=== PATIENT | male | born 1935 | race Hispanic/Latino ===

== ENCOUNTER 2018-02-03 10:53 | Inpatient (IN) | payer OTHER, MEDICARE ==
[2018-02-03 10:55] VITALS: BMI 25.1
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
[2018-02-03] MEDS ORDERED: Calcium Chloride 1000 mg/10 ml Syringe IV ONE (11:28)
[2018-02-03 11:49] LABS: INR 0.97; PARTIAL THROMBOPLASTIN TIME 36.6 Seconds (25.1-36.5); PROTHROMBIN TIME 11.2 SECONDS (9.4-12.5)
[2018-02-03 11:51] LABS: BASO # 0.03 K/mm3 (0.0-2.0); BASO % 0.2 % (0.0-3.0); EOS # 0.2 (0.0-0.7); EOS % 1.2 % (1.5-5.0); GRAN # 6.84 (1.4-6.5); GRAN % 47.5 % (50.0-68.0); HEMOGLOBIN 9.9 g/dL (14.0-18.0); LYMPH # 6.5 (1.2-3.4); LYMPH % 44.9 % (22.0-35.0); MEAN CELL VOLUME 105.8 fl (80.0-105.0); MEAN CORPUSCULAR HGB CONC 30.3 g/dl (31.0-37.0); MEAN PLATELET VOLUME 11.6 fl (7.0-11.0); MONO # 0.9 (0.1-0.6); MONO % 6.2 % (1.0-6.0); RBC 3.09 10^6/uL (3.5-6.1); RED CELL DISTRIBUTION WIDTH 15.5 % (11.5-14.5); WHITE BLOOD COUNT 14.4 10^3/uL (4.5-11.0)
[2018-02-03 12:02] LABS: ALBUMIN 3.1 g/dL (3.0-4.8); CALCIUM 10.6 mg/dL (8.4-10.5); TROPONIN I 0.03 ng/mL
[2018-02-03 12:26] LABS: PH,URINE 6.5 (4.7-8.0); URINE BILIRUBIN NEGATIVE (NEGATIVE); URINE BLOOD MODERATE (NEGATIVE); URINE GLUCOSE (UA) NEGATIVE (NEGATIVE); URINE LEUKOCYTE ESTERASE LARGE Leu/uL (NEGATIVE); URINE PROTEIN 30 mg/dL (<30 mg/dL); URINE UROBILINOGEN 0.2 E.U./dL (<1 E.U./dL)
[2018-02-03 12:40] LABS: URINE APPEARANCE TURBID (CLEAR); URINE COLOR YELLOW (YELLOW)
[2018-02-03 12:43] LABS: URINE BACTERIA MANY /hpf; URINE WBC TNTC /hpf (0-6)
[2018-02-03 12:59] LABS: BARBITURATES, UR NEGATIVE (NEGATIVE); BENZODIAZEPINES, UR NEGATIVE (NEGATIVE); OPIATES, UR NEGATIVE (NEGATIVE); PHENCYCLIDINE, UR NEGATIVE (NEGATIVE)
--- NOTE | 2018-02-03 13:22 | RAD ---
Date of service: 02/03/2018 HISTORY: post intubation/tube placements COMPARISON: No prior. FINDINGS: LUNGS: No active pulmonary disease. PLEURA: No significant pleural effusion identified, no pneumothorax apparent. CARDIOVASCULAR: No atherosclerotic calcification present No radiographic findings to suggest acute or significant cardiovascular disease. OSSEOUS STRUCTURES: No significant abnormalities. VISUALIZED UPPER ABDOMEN: Normal. OTHER FINDINGS: Satisfactory position of endotracheal tube. Nasogastric tube tip above the diaphragm. The finding is marked on the study for review. IMPRESSION: Satisfactory position of endotracheal tube. Poorly positioned nasogastric tube, the tip in the thoracic cavity at least 5 cm from the gastroesophageal junction.
[2018-02-03] MEDS ORDERED: levETIRAcetam 1000mg/100ml NS 100 ML IV ONE (13:30)
[2018-02-03] MEDS ORDERED: Propofol 10 mg/ml 0 MG/0 ML VIAL ONE (13:46)
--- NOTE | 2018-02-03 14:09 | RAD ---
Date of service: 02/03/2018 HISTORY: tube adjustment COMPARISON: February 03, 2018 Time of the most recent examination: 11:11. FINDINGS: LUNGS: No active pulmonary disease. PLEURA: Small right pneumothorax a new finding compared to prior studies. CARDIOVASCULAR: No radiographic findings to suggest acute or significant cardiovascular disease. Atherosclerotic calcifications identified primarily aortic arch. OSSEOUS STRUCTURES: No significant abnormalities. VISUALIZED UPPER ABDOMEN: Normal. OTHER FINDINGS: Satisfactory position of nasogastric tube. Stable position of endotracheal tube IMPRESSION: . small right apical pneumothorax on the right a new finding compared to the prior chest radiograph from 11:11 February 03, 2018 Please note attempts were made to reach the ordering physician at the time of this interpretation. Abdomen report will be issued upon verbal communication of these results.
[2018-02-03 14:54] LABS: ARTERIAL BLOOD GAS PCO2 43 mm/Hg (35-45); ARTERIAL BLOOD GAS PH 7.19 (7.35-7.45)
[2018-02-03 14:57] LABS: ARTERIAL BLOOD GAS HCO3 16.4 mmol/L (21-28)
[2018-02-03 14:58] LABS: ARTERIAL BLOOD GAS HEMOGLOBIN 8.1 g/dL (11.7-17.4); ARTERIAL BLOOD GAS O2 SAT 98.5 % (95-98); ARTERIAL BLOOD GAS TCO2 17.7 mmol.L (22-28)
[2018-02-03] MEDS: Dextrose 5%/0.45% NS 1,000 ML IV SCH (15:46)
[2018-02-03] MEDS ORDERED: Sodium Bicarbonate (8.4%) 50 Meq Syringe IVP ONE ×2 (15:50→16:00)
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
[2018-02-03 17:00] LABS: ARTERIAL BLOOD GAS HCO3 19.1 mmol/L (21-28); ARTERIAL BLOOD GAS HEMOGLOBIN 7.5 g/dL (11.7-17.4); ARTERIAL BLOOD GAS O2 CAPACITY 10.5 mL/dl (16-24); ARTERIAL BLOOD GAS O2 CONTENT 10.4 ML/dl (15-23); ARTERIAL BLOOD GAS O2 SAT 98.8 % (95-98); ARTERIAL BLOOD GAS PCO2 37 mm/Hg (35-45); ARTERIAL BLOOD GAS PH 7.32 (7.35-7.45); ARTERIAL BLOOD GAS TCO2 20.2 mmol.L (22-28)
[2018-02-03] MEDS ORDERED: Pneumococcal 23-Valent Vaccine IM ONE (17:16)
[2018-02-03] MEDS ORDERED: Influenza Vaccine 60 mcg/0.5 mL SYR (4YR UP) IM ONE (17:16)
[2018-02-03 17:54] LABS: ALBUMIN 2.8 g/dL (3.0-4.8); CALCIUM 8.7 mg/dL (8.4-10.5)
--- NOTE | 2018-02-03 18:03 | RAD ---
Date of service: 02/03/2018 HISTORY: ptx COMPARISON: No prior. FINDINGS: LUNGS: Well aerated right lung. New consolidative changes left lower lobe. PLEURA: No visible pneumothorax identified on the present study. CARDIOVASCULAR: No atherosclerotic calcification present Normal. OSSEOUS STRUCTURES: No significant abnormalities. VISUALIZED UPPER ABDOMEN: Normal. OTHER FINDINGS: Satisfactory position of endotracheal tube. Nasogastric tube tip now resides at the level of the mid esophagus. The finding is marked on the study for review. IMPRESSION: No visible pneumothorax. New consolidative changes/left lower lobe infiltrate. Satisfactory position of endotracheal tube. Improperly positioned nasogastric tube. The tip is in the midthoracic esophagus at the level of the von.
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
[2018-02-04] MEDS: Insulin Reg-MEDIUM-Coverage SC SCH ×4 (00:35→17:47)
[2018-02-04 06:50] LABS: BASO # 0.01 K/mm3 (0.0-2.0); BASO % 0.1 % (0.0-3.0); GRAN # 15.12 (1.4-6.5); HEMOGLOBIN 9.7 g/dL (14.0-18.0); LYMPH # 0.7 (1.2-3.4); MEAN CELL VOLUME 101.7 fl (80.0-105.0); MEAN CORPUSCULAR HGB CONC 31.5 g/dl (31.0-37.0); MEAN PLATELET VOLUME 10.9 fl (7.0-11.0); MONO # 1.6 (0.1-0.6); MONO % 8.9 % (1.0-6.0); PLATELET COUNT 251 10^3/uL (120.0-450.0); RBC 3.03 10^6/uL (3.5-6.1); RED CELL DISTRIBUTION WIDTH 15.3 % (11.5-14.5); WHITE BLOOD COUNT 17.4 10^3/uL (4.5-11.0)
[2018-02-04 06:51] LABS: CALCIUM 8.6 mg/dL (8.4-10.5)
[2018-02-04 07:02] LABS: ARTERIAL BLOOD GAS HCO3 14.5 mmol/L (21-28); ARTERIAL BLOOD GAS HEMOGLOBIN 8.2 g/dL (11.7-17.4); ARTERIAL BLOOD GAS O2 CONTENT 10.3 ML/dl (15-23); ARTERIAL BLOOD GAS PCO2 25 mm/Hg (35-45); ARTERIAL BLOOD GAS PH 7.37 (7.35-7.45); ARTERIAL BLOOD GAS TCO2 15.3 mmol.L (22-28)
[2018-02-04 07:24] LABS: BAND 1 % (0-2); EOSINOPHIL 1 % (0.0-3.0); LYMPHOCYTE 3 % (22.0-35.0); MONOCYTE 6 % (1.0-6.0); NEUTROPHIL 89 % (50.0-70.0)
[2018-02-04 07:25] LABS: HYPOCHROMIA 2+; PLATELET ESTIMATE NORMAL (NORMAL); ROULEAU 2+; TOXIC GRANULATION 3+
--- NOTE | 2018-02-04 07:33 | CP.PCM.PCO ---
Physician Communication Note - Physician Communication Note Physician Communication Note: no evidence of PTX on CXR this am, no need for Chest tube, will sign off
[2018-02-04] MEDS: Potassium Chloride 20 mEq 100 ML IV SCH ×2 (08:39→13:52)
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
--- NOTE | 2018-02-04 09:05 | CARD ---
APPROVED REPORT Date of service: 02/03/2018 EKG Measurement Heart [id number] <Conclusion> Sinus with frequent PVCs, 6 beat VT LVH STTW changes Prolonged QTc
--- NOTE | 2018-02-04 09:28 | CARD ---
APPROVED REPORT Date of service: 02/03/2018 EKG Measurement Heart [id number] <Conclusion> Sinus rhythm with 2nd degree AV block (Mobitz I) Left ventricular hypertrophy with repolarization abnormality STTW changes c/w ischemia
--- NOTE | 2018-02-04 09:29 | CARD ---
APPROVED REPORT Date of service: 02/03/2018 EKG Measurement Heart [id number] <Conclusion> RSR with Mobitz 1 2nd degree AVB LVH STTW changes c/w ischemia
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
--- NOTE | 2018-02-04 10:45 | RAD ---
Date of service: 02/04/2018 HISTORY: Pneumothorax. COMPARISON: February 03, 2018. FINDINGS: LUNGS: No visible pneumothorax. Finding confirmed on recent CT of the thorax. Improved aeration of the lungs compared to prior chest radiographs. PLEURA: No significant pleural effusion identified, no pneumothorax apparent. CARDIOVASCULAR: No significant interval change compared to the prior examination(s). OSSEOUS STRUCTURES: No significant abnormalities. VISUALIZED UPPER ABDOMEN: Normal. OTHER FINDINGS: Satisfactory position of endotracheal tube. Stable position of nasogastric tube at the level of the von. As described on prior CT scans the proximal nasogastric tube is coiled in the oral and hypopharyngeal regions. IMPRESSION: Stable position of support apparatus including improperly placed nasogastric tube. No visible pneumothorax.
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
[2018-02-04 13:30] LABS: TROPONIN I 0.75 ng/mL
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
--- NOTE | 2018-02-04 14:56 | PN ---
DATE: 02/04/2018 SUBJECTIVE: The patient is sedated on ventilator and with FiO2 of 40%. He has a potassium of 3.6 this morning which will be replaced. Note that the patient's CT of the head was negative and no pneumothorax on the CT of the chest. The patient continued to be unresponsive. PHYSICAL EXAMINATION: VITAL SIGNS: Note that his temperature is 98.6, his pulse is 77, respirations of 23 and BP is 144/85. SKIN: Warm and dry. HEENT: Head atraumatic, normocephalic. Eyes reactive to light. Ear, nose and throat seem to be within normal limits. NECK: His neck is supple. No JVD. No thyroid enlargement or lymph nodes. HEART: Has regular rate and rhythm. Normal S1, S2. LUNGS: Reveal mild rhonchi at the bases. ABDOMEN: Soft. Decreased bowel sounds. GENITALIA: Deferred. RECTAL: Deferred. MUSCULOSKELETAL: No joint deformities. EXTREMITIES: Reveal 1+ lower extremity edema. NEUROLOGIC: Neurologically, he is unresponsive on the ventilator. LABORATORY DATA: As far as his laboratories are concerned, white count is 17.4, hemoglobin is 9.7, hematocrit 30.8 with platelets of 251,000. His arterial blood gas reveals a pH of 7.37, pCO2 of 25, pO2 of 143. The patient's sodium is 143, potassium 3.4, chloride 117, CO2 of 22 with a BUN of 32, creatinine of 1.9 and a glucose of 301. The patient's troponin is 0.86 this morning. As far as chest x-ray, reading is pending. CT of the abdomen and pelvis revealed that there is a lower lobe infiltrate and symmetrical small pleural effusions. Noted that there was an improperly positioned NG tube. IMPRESSION: Patient had cardiac arrest and cardiopulmonary resuscitation with pulseless electrical activity during admission. He continued to be unresponsive on the ventilator and with respiratory failure. He has anemia as well as acute renal failure, hypokalemia anemia and metabolic acidosis. The patient has a ventral hernia and multiple contusions and diagnosed with diabetes and prostate disease. PLAN: As far as our plan, we will continue with the ventilator support. Continue to follow closely with cardiology and neurology. We will continue with Protonix and bicarb drip has been stopped. We will follow the patient's arterial blood gas and chest x-ray as well. Ephraim Momin MD
[2018-02-04 15:19] LABS: CALCIUM 8.7 mg/dL (8.4-10.5)
[2018-02-04 15:36] LABS: CK MB% 1.3 % (2.5-3.0); CK-MB 13.2 ng/mL (0.0-3.6)
[2018-02-04] MEDS: Vancomycin 750mg 750 MG/250 ML BAG IVPB SCH (17:38)
[2018-02-04] MEDS: Dextrose 5%/0.45% NS 1,000 ML IV SCH (18:53)
[2018-02-04] MEDS: Cefepime 1gm in NS 100ml 1 GM/100 ML BAG IVPB SCH (21:36)
[2018-02-05] MEDS: Insulin Reg-MEDIUM-Coverage SC SCH ×3 (03:58→18:54)
[2018-02-05] MEDS: Vancomycin 750mg 750 MG/250 ML BAG IVPB SCH (05:16)
[2018-02-05 06:59] LABS: ALB/GLOB RATIO 0.9 (1.1-1.8); ALBUMIN 2.8 g/dL (3.0-4.8); CALCIUM 8.6 mg/dL (8.4-10.5)
[2018-02-05] MEDS: Dextrose 5%/0.45% NS 1,000 ML IV SCH (07:45)
--- NOTE | 2018-02-05 08:16 | CP.PCM.PN ---
Subjective - Date & Time of Evaluation Date of Evaluation: 02/05/18 Time of Evaluation: 07:00 - Subjective Subjective: Stable, intubated, on vent in CCU. I spoke with his bedside nurse. V/S noted. RSR. Febrile PE: ngs: rhonchi Cor.: S1S2 Abd.: soft Ext.: mild edema Neuro.: unresponsive I/O= 2600/2150 recorded Labs noted: K+= 3.8, Cr.= 2.1, BS = 277, trops = 0.75 and 0.76 Urine C+S= GNR ECG 02/04: RSR, 1st degree AVB, LVH, STTW changes Objective - Vital Signs/Intake and Output Vital Signs (last 24 hours): Temp Pulse Resp BP Pulse Ox 99.3 F 99 H 30 H 135/58 L 100 02/05/18 06:00 02/05/18 06:00 02/05/18 07:43 02/05/18 06:00 02/05/18 07:43 Intake and Output: 02/05/18 02/05/18 06:59 18:59 Intake Total 2600 Output Total 2150 Balance 450 - Medications Medications: Current Medications Aspirin (Aspirin Supp) 300 mg RC DAILY [facility] Last Admin: 02/04/18 10:03 Dose: 300 mg Dextrose/Sodium Chloride (Dextrose 5%/0.45% Ns 1000 Ml) 1,000 mls @ 75 mls/hr IV .[id number] RAJ Last Admin: 02/04/18 18:53 Dose: 75 mls/hr Vancomycin HCl (Vancomycin 750 Mg In Ns) 750 mg in 250 mls @ 167 mls/hr IVPB Q12H RAJ; Protocol Last Admin: 02/05/18 05:16 Dose: 167 mls/hr Cefepime HCl (Maxipime 1gm) 1 gm in 100 mls @ 100 mls/hr IVPB Q12 RAJ; Protocol Last Admin: 02/04/18 21:36 Dose: 100 mls/hr Insulin Human Regular (Humulin R Med) 0 units SC ACHS RAJ; Protocol Last Admin: 02/05/18 03:58 Dose: Not Given Pantoprazole Sodium (Protonix Inj) 40 mg IVP DAILY [facility] Last Admin: 02/04/18 10:01 Dose: 40 mg - Labs Labs: 02/04/18 06:30 02/05/18 05:30 PT 11.2 SECONDS (9.4-12.5) 02/03/18 11:30 INR 0.97 02/03/18 11:30 APTT 36.6 Seconds (25.1-36.5) H 02/03/18 11:30 Assessment and Plan - Assessment and Plan (Free Text) Assessment: OOHCA with prolonged resuscitation/R/O TX,arrhythmia., etc Anoxic encephalopathy/R/O stroke Seizure Hypokalemia initially Acute renal insufficiency Hyperglycemia Anemia Leukocytosis Plan: As per Intensivists, Neuro. Check echo today. Monitor: labs, I/O, sats., neuro. status, etc. Will follow.
[2018-02-05 08:49] LABS: BASO # 0.01 K/mm3 (0.0-2.0); GRAN # 18.75 (1.4-6.5); GRAN % 89.2 % (50.0-68.0); HEMOGLOBIN 10.3 g/dL (14.0-18.0); LYMPH # 1.2 (1.2-3.4); LYMPH % 5.5 % (22.0-35.0); MEAN CELL VOLUME 105.6 fl (80.0-105.0); MEAN CORPUSCULAR HEMOGLOBIN 31.9 pg (25.0-35.0); MEAN CORPUSCULAR HGB CONC 30.2 g/dl (31.0-37.0); MEAN PLATELET VOLUME 11.5 fl (7.0-11.0); MONO # 1.1 (0.1-0.6); MONO % 5.3 % (1.0-6.0); RBC 3.23 10^6/uL (3.5-6.1); RED CELL DISTRIBUTION WIDTH 15.9 % (11.5-14.5)
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
--- NOTE | 2018-02-05 09:03 | CARD ---
APPROVED REPORT Date of service: 02/04/2018 EKG Measurement Heart [id number] ID [id number] <Conclusion> Sinus rhythm with 1st degree AV block Left ventricular hypertrophy STTW changes c/w ischemia
[2018-02-05] MEDS: Cefepime 1gm in NS 100ml 1 GM/100 ML BAG IVPB SCH (09:29)
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
--- NOTE | 2018-02-05 14:41 | PN ---
NEUROLOGY FOLLOWUP DATE: 02/05/2018 CHIEF COMPLAINT: Followup for status post cardiac arrest. SUBJECTIVE: The patient is sedated, on ventilator, withdraws to localized noxious stimuli, but otherwise, continues to be unresponsive. He is on Keppra 750 mg IV every 12 hours for seizure prophylaxis. EEG was done, results are pending. PAST MEDICAL HISTORY: History of type 2 diabetes mellitus. REVIEW OF SYSTEMS: A 12-point review of systems is negative except per the HPI FAMILY HISTORY: Noncontributory. MEDICATIONS: Reviewed by nurse's reconciliation sheet. ALLERGIES: UNABLE TO OBTAIN AT THIS TIME. REVIEW OF SYSTEMS: Unable to obtain due to the patient's mental status. SOCIAL HISTORY: Unable to obtain. LABORATORY DATA: Sodium 146, potassium 3.8, chloride 119, carbon dioxide 23, BUN of 35, creatinine 2.1, random glucose of 277. Troponin 0.76. Urine cultures growing Klebsiella pneumonia. PHYSICAL EXAMINATION: VITAL SIGNS: Temperature 99.3, pulse rate of 99, respirations 35, and blood pressure 105/58. GENERAL: The patient is sedated, unresponsive. HEART: S1 and S2. Normal rate and rhythm. No murmurs, rubs or gallops. ABDOMEN: Soft, nontender, and nondistended. Bowel sounds are present. LUNGS: Decreased breath sounds bilaterally. NEUROLOGIC: Difficult to obtain due to mental status, the is intubated and unresponsive. Speech is difficult to obtain at this time. Cranial nerves II through XII intact. Motor exam, no spontaneous movements in extremities. Sensory exam, Withdraws to localized noxious stimulus especially in the lower extremities. Toes are upgoing bilaterally. Coordination and gait, deferred for now. IMPRESSION AND PLAN: This is a 82-year-old male with history of diabetes, status post cardiac arrest, who has some questionable seizure like activity. He is on Keppra 750 mg intravenous every 12 hours. EEG has been done, results are pending. CAT scan of the head showed no acute intracranial abnormality. 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 Neurosurgery is on board, pending their evaluation. The patient also has some underlying lower lobe infiltrate, status post cardiac arrest and in addition to Klebsiella pneumonia in his urine, complicated mental status. RECOMMENDATIONS: At this time, 1. Thiamine 300 mg IV every 12 hours daily for neuronal activity. 2. Keppra 750 mg IV every 12 hours for seizure prophylaxis. 3. We will recommend MRI of the brain without contrast to assess for any central process with worsening mental status. 4. Continue to monitor his troponin and follow up with Cardiology in regard to recommendations. At this time, prognosis is guarded. Jose Luis Espinal MD
[2018-02-05] MEDS: Meropenem IV 1 gm in NS 1 GM/50 ML BAG IVPB SCH ×2 (15:23→22:53)
--- NOTE | 2018-02-05 16:52 | PCM.EEG ---
Electroencephalogram Report - Electroencephalogram Report Procedure Date: 02/05/18 Medication: ASA, Meropenem, Pantoprazole Interpretation: Technical Information: This was a 16-channel EEG, 1-channel EKG routine EEG performed using [employer] equipment. Electrodes were applied using the 10/20 international placement system. Start 11;05 End; 11;50 Total; 45 min Clinical Information: Coma, s/p cardiac arrest. EEG Details During the entire study was not discernible awake EEG architecture, the tracing showed diffuse bilateral attenuation with frequencies in the 4 to 5 Hz. with superimposed onand off muscle artifact. , there was no reactivity of the EEG. Drowsiness not seen, sleep not seen. Hyperventilation was not performed. Photic stimulation was not performed. Interictal activity; none Focal abnormality; none Impression: This is an abnormal EEG record that demonstrate the presence of severe non specific diffuse disturbance of cortical activity, this is keeping with a diffuse joe matter dysfunction, these findings are not specific and could be secondary to multiple etiologies, clinical correlation is recommended. Patient is not in status epilepticus.
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
--- NOTE | 2018-02-05 22:24 | CON ---
DATE OF CONSULTATION: 02/05/2018 The patient is in Room 129, Bed 2. I was called to see the patient because of a fever. The patient is intubated on a ventilator, unresponsive. The patient was brought to the emergency room with a diagnosis of cardiac arrest. He did have fever yesterday when he was admitted and continued to have fevers this morning. The patient is unresponsive, unable to give any history, and information is gathered from the nurse and the chart. PAST MEDICAL HISTORY: Significant for diabetes mellitus and prostate disease. PAST SURGICAL HISTORY: Unknown. MEDICATIONS AT HOME: Unknown. ALLERGIES: IT IS UNKNOWN IF THE PATIENT HAS ANY ALLERGIES. REVIEW OF SYSTEMS: Difficult to obtain. PHYSICAL EXAMINATION: GENERAL: The patient is in bed, intubated on a ventilator. VITAL SIGNS: Temperature of 100.9, heart rate of 113, blood pressure is 140/56, and on the vent. HEENT: ET-tube in place. NECK: Supple. LUNGS: Decreased breath sounds. HEART: Normal S1 and S2. ABDOMEN: Soft, nontender. LABORATORY EXAMINATION: The patient's white count of 14,000, is up to 21,000; hemoglobin of 10; MCV is 105; platelets of 286,000. The patient has a creatinine of 2.1. Glucose is 245. Troponin is 0.75 and 0.76. Alk phos is 130. Urinalysis is noted, too numerous to count wbc's, many bacteria. Microbiology reveals ESBL Klebsiella. MRSA nares is not detected. Chest x-ray is noted. CT scan of the chest and abdomen is noted. ASSESSMENT/PLAN: This is an 82-year-old male with diabetes and prostate disease and #1 is severe sepsis; respiratory failure, on the ventilator; acute kidney injury with ESBL Klebsiella, urine as the source, must rule out prostatitis; with cardiac arrest. The patient was already given a dose of vancomycin and I am going to add meropenem, place the patient on ESBL isolation, discontinue the cefepime, and discontinue the vancomycin given the acute renal failure. We will order a PSA. Overall, prognosis is quite poor for this patient. Connor Adkins MD [facility] # [id number]
[2018-02-06] MEDS: Insulin Reg-MEDIUM-Coverage SC SCH ×4 (03:22→20:17)
[2018-02-06] MEDS ORDERED: Metoprolol 1 mg/ml Inj IVP ONE (04:01)
[2018-02-06] MEDS ORDERED: Metoprolol 1 mg/ml Inj ONE (04:07)
[2018-02-06 06:56] LABS: BASO # 0.02 K/mm3 (0.0-2.0); BASO % 0.1 % (0.0-3.0); GRAN # 21.98 (1.4-6.5); GRAN % 90.4 % (50.0-68.0); LYMPH # 0.8 (1.2-3.4); LYMPH % 3.2 % (22.0-35.0); MEAN CELL VOLUME 105.9 fl (80.0-105.0); MEAN CORPUSCULAR HGB CONC 30.2 g/dl (31.0-37.0); MEAN PLATELET VOLUME 11.4 fl (7.0-11.0); MONO # 1.5 (0.1-0.6); MONO % 6.3 % (1.0-6.0); RBC 3.75 10^6/uL (3.5-6.1); RED CELL DISTRIBUTION WIDTH 16.1 % (11.5-14.5); WHITE BLOOD COUNT 24.3 10^3/uL (4.5-11.0)
--- NOTE | 2018-02-06 07:43 | CP.PCM.PN ---
Subjective - Date & Time of Evaluation Date of Evaluation: 02/06/18 Time of Evaluation: 07:00 - Subjective Subjective: Stable, intubated, on vent in CCU. Not responsive. I spoke with his bedside nurse. V/S noted. RSR. Febrile PE: ngs: rhonchi Cor.: S1S2 Abd.: soft Ext.: mild edema Neuro.: unresponsive I/O= 3000/1900 recorded Labs noted: K+= 3.8, Cr.= 2.1, BS = 277, trops = 0.75 and 0.76 Urine C+S= + Klebs ECG 02/04: RSR, 1st degree AVB, LVH, STTW changes Echo: mild/mod LVD. See report. EEG noted. Objective - Vital Signs/Intake and Output Vital Signs (last 24 hours): Temp Pulse Resp BP Pulse Ox 102.2 F H 120 H 62 H 132/69 97 02/05/18 18:00 02/06/18 06:00 02/05/18 08:02 02/06/18 04:05 02/05/18 18:00 - Medications Medications: Current Medications Aspirin (Aspirin Supp) 300 mg RC DAILY [facility] Last Admin: 02/05/18 11:30 Dose: 300 mg Dextrose/Sodium Chloride (Dextrose 5%/0.45% Ns 1000 Ml) 1,000 mls @ 75 mls/hr IV .[id number] [facility] Last Admin: 02/05/18 07:45 Dose: 75 mls/hr Levetiracetam 750 mg/ Sodium (Chloride) 107.5 mls @ 430 mls/hr IV Q12 [facility] Last Admin: 02/05/18 22:52 Dose: 430 mls/hr Meropenem (Merrem Iv 1 Gm Premix) 1 gm in 50 mls @ 12.5 mls/hr IVPB Q12 [facility]; Protocol Stop: 02/14/18 14:46 Last Admin: 02/05/18 22:53 Dose: 12.5 mls/hr Insulin Human Regular (Humulin R Med) 0 units SC Q6 [facility]; Protocol Last Admin: 02/06/18 03:22 Dose: Not Given Pantoprazole Sodium (Protonix Inj) 40 mg IVP DAILY [facility] Last Admin: 02/05/18 10:57 Dose: 40 mg - Labs Labs: 02/06/18 06:20 02/05/18 05:30 PT 11.2 SECONDS (9.4-12.5) 02/03/18 11:30 INR 0.97 02/03/18 11:30 APTT 36.6 Seconds (25.1-36.5) H 02/03/18 11:30 Assessment and Plan - Assessment and Plan (Free Text) Assessment: OOHCA with prolonged resuscitation/R/O IN,arrhythmia., etc 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 Plan: As per Intensivists, Neuro., ID and Dr. Pastor Monitor: labs, I/O, sats., neuro. status, etc. Will follow.
[2018-02-06 08:05] LABS: ALB/GLOB RATIO 0.9 (1.1-1.8); ALBUMIN 3.2 g/dL (3.0-4.8)
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
--- NOTE | 2018-02-06 08:57 | CARD ---
APPROVED REPORT Date of service: 02/05/2018 EXAM: Two-dimensional and M-mode echocardiogram with Doppler and color Doppler. Other Information Quality : FairRhythm : INDICATION S/P CARDIAC ARREST 2D DIMENSIONS IVSd1.3 (0.7-1.1cm)LVDd5.4 (3.9-5.9cm) PWd1.3 (0.7-1.1cm)LVDs4.2 (2.5-4.0cm) FS (%) 21.8 % M-Mode DIMENSIONS Left Atrium (MM)4.30 (2.5-4.0cm)Aortic Root3.90 (2.2-3.7cm) Aortic Cusp Exc.2.30 (1.5-2.0cm) Aortic Valve AoV Peak Nvovcvxn162.0cm/s Mitral Valve MV E Ntgrvvaf785.0cm/sE/A ratio0.0 TDI Lateral E' Peak V17.10cm/sMedial E' Peak V12.70cm/sE/Lateral E'8.8 E/Medial E'11.9 Tricuspid Valve TR Peak Wnyidfup368qg/sRAP [id number] Peak Gr.27mmHg [id number] LEFT VENTRICLE The left ventricle is normal size. There is normal left ventricular wall thickness. Left ventricle systolic function is moderately impaired. The Ejection Fraction is - 35 % The cardiac apex is rounded and there is moderate global hypokinesis. RIGHT VENTRICLE The right ventricle is normal size. ATRIA The left atrium size is normal. The right atrium size is normal. The interatrial septum is intact with no evidence for an atrial septal defect. AORTIC VALVE The aortic valve is mildly calcified. MITRAL VALVE The mitral valve is normal in structure. Mitral regurgitation is trace. TRICUSPID VALVE The tricuspid valve is not well visualized. There is trace tricuspid regurgitation. GREAT VESSELS The aortic root is normal in size. PERICARDIAL EFFUSION There is no pericardial effusion. <Conclusion> The left ventricle is normal size. There is normal left ventricular wall thickness. Left ventricle systolic function is moderately impaired. The Ejection Fraction is - 35 %. The cardiac apex is rounded and there is moderate global hypokinesis.
[2018-02-06] MEDS: Meropenem IV 1 gm in NS 1 GM/50 ML BAG IVPB SCH ×2 (09:10→21:15)
[2018-02-06] MEDS ORDERED: Magnesium Sulfate 1 gm in D5W 1 GM/100 ML BAG IVPB ONE (09:47)
[2018-02-06] MEDS ORDERED: Sodium Chloride 0.9% 1,000 ML IV SCH (12:30)
--- NOTE | 2018-02-06 12:47 | CT ---
Date of service: 02/06/2018 PROCEDURE: CT HEAD WITHOUT CONTRAST. HISTORY: Altered mental status. COMPARISON: 02/03/2018. TECHNIQUE: Axial computed tomography images were obtained through the head/brain without intravenous contrast. Supplemental Coronal and Sagittal projections created and reviewed. Radiation dose: Total exam DLP = 1042.70 mGy-cm. This CT exam was performed using one or more of the following dose reduction techniques: Automated exposure control, adjustment of the mA and/or kV according to patient size, and/or use of iterative reconstruction technique. FINDINGS: HEMORRHAGE: No intracranial hemorrhage. BRAIN: No mass effect or edema. Cortical and cerebellar atrophy, periventricular small vessel disease. VENTRICLES: Unremarkable. No hydrocephalus. CALVARIUM: Unremarkable. PARANASAL SINUSES: Unremarkable as visualized. No significant inflammatory changes. MASTOID AIR CELLS: Unremarkable as visualized. No inflammatory changes. OTHER FINDINGS: None. IMPRESSION: No acute intracranial abnormalities. No significant findings to account for the clinical presentation. No significant interval change compared to the prior examination(s).
--- NOTE | 2018-02-06 12:53 | PN ---
DATE: 02/06/2018 SUBJECTIVE: The patient is seen early this morning in the ICU. The patient remains intubated on a ventilator, unresponsive. OBJECTIVE: VITAL SIGNS: Temperature is 96, T-max yesterday was 102.7, blood pressure is 140/80, respiratory rate on the vent, heart rate of 101. HEENT: Unremarkable. NECK: Supple. LUNGS: Have decreased breath sounds. HEART: Normal S1, S2. ABDOMEN: Soft. LABORATORY EXAMINATION: Reveals the patient's white count of 24,300, hemoglobin of 12, platelets of 235. Chemistries reveals a creatinine is 1.9 and PSA is 0.5 and LFTs are elevated. Alk phos is elevated. The urinalysis is noted, too numerous to count WBCs, negative toxicology. Microbiology, there is Klebsiella in the urine and ESBL positive Klebsiella. The MRSA is not detected. The blood cultures are pending. Review of orders reveals the patient to have meropenem. The patient is scheduled for a CT of the head today. note from this morning is reviewed. ASSESSMENT AND PLAN: An 82-year-old male with a past medical significant for diabetes and prostate disease who is admitted with severe sepsis, respiratory failure, on a ventilator, acute kidney injury with ESBL Klebsiella in the urine and was admitted with cardiac arrest currently unresponsive, on meropenem and ESBL precautions, normal PSA. Awaiting for blood culture results. Overall, prognosis is quite poor with this patient who has acute cardiac arrest with elevated troponins. COMMENT: The patient is a DNR/DNI. We will follow with you. Connor Adkins MD
[2018-02-06] MEDS: Insulin Detemir 100 units/ml Vial (Levemir) SC SCH (21:17)
[2018-02-07] MEDS: Insulin Reg-MEDIUM-Coverage SC SCH ×4 (01:00→18:31)
[2018-02-07 05:35] LABS: ARTERIAL BLOOD GAS HCO3 23.1 mmol/L (21-28); ARTERIAL BLOOD GAS HEMOGLOBIN 13.5 g/dL (11.7-17.4); ARTERIAL BLOOD GAS O2 CONTENT 17.7 ML/dl (15-23); ARTERIAL BLOOD GAS O2 SAT 98.4 % (95-98); ARTERIAL BLOOD GAS PCO2 47 mm/Hg (35-45); ARTERIAL BLOOD GAS TCO2 24.5 mmol.L (22-28)
[2018-02-07 06:42] LABS: BASO # 0.02 K/mm3 (0.0-2.0); BASO % 0.1 % (0.0-3.0); EOS % 0.1 % (1.5-5.0); GRAN # 20.95 (1.4-6.5); GRAN % 88.8 % (50.0-68.0); HEMOGLOBIN 10.8 g/dL (14.0-18.0); LYMPH # 1.2 (1.2-3.4); LYMPH % 4.9 % (22.0-35.0); MEAN CELL VOLUME 107.8 fl (80.0-105.0); MEAN CORPUSCULAR HEMOGLOBIN 32.2 pg (25.0-35.0); MEAN CORPUSCULAR HGB CONC 29.9 g/dl (31.0-37.0); MEAN PLATELET VOLUME 12.2 fl (7.0-11.0); MONO # 1.4 (0.1-0.6); MONO % 6.1 % (1.0-6.0); RBC 3.35 10^6/uL (3.5-6.1); RED CELL DISTRIBUTION WIDTH 15.9 % (11.5-14.5); WHITE BLOOD COUNT 23.6 10^3/uL (4.5-11.0)
[2018-02-07 06:59] LABS: ALB/GLOB RATIO 0.9 (1.1-1.8); ALBUMIN 2.9 g/dL (3.0-4.8); CALCIUM 8.6 mg/dL (8.4-10.5)
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
--- NOTE | 2018-02-07 07:22 | RAD ---
Date of service: 02/07/2018 HISTORY: Pt is on ventilator. COMPARISON: Portable chest 02/04/2018. FINDINGS: LUNGS: Endotracheal tube is unchanged in position with apparent feeding tube unchanged anterior to left deandra abdomen with tip off the image. Retrocardiac left basilar airspace disease is potentially mildly improved. Borderline right infrahilar patchy density. PLEURA: No pleural effusion appreciated bilaterally representing improvement at the left base. No pneumothorax bilaterally. CARDIOVASCULAR: Calcific atherosclerotic changes are seen related to the thoracic aorta. Normal cardiac size. No pulmonary vascular congestion. OSSEOUS STRUCTURES: No significant abnormalities. VISUALIZED UPPER ABDOMEN: Normal. OTHER FINDINGS: None. IMPRESSION: 1. Mild improvement in left retrocardiac airspace disease with apparent resolution of prior left pleural effusion. Borderline right infrahilar patchy density unchanged. 2. Stable endotracheal and feeding tube deployment.
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
[2018-02-07] MEDS: Meropenem IV 1 gm in NS 1 GM/50 ML BAG IVPB SCH ×2 (09:32→22:49)
--- NOTE | 2018-02-07 12:10 | CP.PCM.PN ---
Subjective - Date & Time of Evaluation Date of Evaluation: 02/07/18 Time of Evaluation: 10:50 - Subjective Subjective: Still on the ventilator and sedated, had fevers overnight. Objective - Vital Signs/Intake and Output Vital Signs (last 24 hours): Temp Pulse Resp BP Pulse Ox 99.5 F 97 H 23 137/65 99 02/07/18 09:46 02/07/18 07:00 02/07/18 04:00 02/07/18 07:00 02/07/18 07:00 Intake and Output: 02/07/18 02/07/18 06:59 18:59 Intake Total 990 Output Total 950 Balance 40 - Medications Medications: Current Medications Aspirin (Aspirin Supp) 300 mg RC DAILY [facility] Last Admin: 02/07/18 09:46 Dose: 300 mg Levetiracetam 750 mg/ Sodium (Chloride) 107.5 mls @ 430 mls/hr IV Q12 [facility] Last Admin: 02/07/18 09:30 Dose: 430 mls/hr Meropenem (Merrem Iv 1 Gm Premix) 1 gm in 50 mls @ 12.5 mls/hr IVPB Q12 RAJ; Protocol Stop: 02/14/18 14:46 Last Admin: 02/07/18 09:32 Dose: 12.5 mls/hr Dextrose (Dextrose 5% In Water 1000 Ml) 1,000 mls @ 70 mls/hr IV .[id number] [facility] Last Admin: 02/07/18 05:30 Dose: 70 mls/hr Insulin Detemir (Levemir) 10 unit SC HS [facility] Last Admin: 02/06/18 21:17 Dose: 10 units Insulin Human Regular (Humulin R Med) 0 units SC Q6 [facility]; Protocol Last Admin: 02/07/18 06:22 Dose: 3 u Pantoprazole Sodium (Protonix Inj) 40 mg IVP DAILY [facility] Last Admin: 02/07/18 09:33 Dose: 40 mg Thiamine HCl (Vitamin B1 Tab) 100 mg PO DAILY [facility] Last Admin: 02/07/18 09:33 Dose: 100 mg - Labs Labs: 02/07/18 05:30 02/07/18 05:30 PT 11.2 SECONDS (9.4-12.5) 02/03/18 11:30 INR 0.97 02/03/18 11:30 APTT 36.6 Seconds (25.1-36.5) H 02/03/18 11:30 - Constitutional Appears: Chronically Ill - Head Exam Head Exam: NORMAL INSPECTION - Respiratory Exam Respiratory Exam: Decreased Breath Sounds - Cardiovascular Exam Cardiovascular Exam: +S1, +S2 - GI/Abdominal Exam GI & Abdominal Exam: Soft. absent: Tenderness Assessment and Plan - Assessment and Plan (Free Text) Plan: Assessment severe sepsis with VDRF and acute renal failure with UTI with ESBL Klebsiella in this patient S/P cardiac arrest DM prostate disease Plan continue Merrem day 3; will repeat blood cx since patient developed fevers again and will await sputum cx overall prognosis is poor
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
--- NOTE | 2018-02-07 14:48 | PN ---
DATE: 02/07/2018 NEUROLOGY FOLLOWUP CHIEF COMPLAINT: Status post cardiac arrest. SUBJECTIVE: The patient ventilation, has severe sepsis, VDRS, and acute renal failure with UTI, ESBL Klebsiella and status post cardiac arrest with some hypoglycemia, poorly responsive. EEG showed severe bilateral cerebral dysfunction. No evidence of epileptiform activity consistent with his underlying progress. His repeat CAT scan showed no acute intracranial abnormality. PAST MEDICAL HISTORY: Type II diabetes mellitus. REVIEW OF SYSTEM: A 14-point review of systems is obtained due to patient's underlying mental status. FAMILY HISTORY: Noncontributory. MEDICATIONS: Reviewed by nurse reconciliation sheet. ALLERGIES: UNABLE TO OBTAIN AT THIS TIME. SOCIAL HISTORY: Unable to obtain at this time. LABORATORY DATA: WBC 23.6, hemoglobin 10.8, hematocrit 36.1 and platelet count is 271. Sodium is 147, potassium 4.7, chloride 119, carbon dioxide 24, BUN of 50, creatinine 2.7 and random glucose 215. PHYSICAL EXAMINATION: VITAL SIGNS: Temperature 99.5 rectally, pulse rate 110, blood pressure 137/65, respirations , FIO2 of 35 via mechanical ventilation. GENERAL: The patient intubated today, unresponsive. HEART: S1 and S2. Normal rate and rhythm. No murmurs, rubs or gallops. ABDOMEN: Soft, nontender, nondistended. Bowel sounds are present. LUNGS: Decreased breath sounds bilaterally. NEURO: Patient has difficulty in . Patient is intubated and unresponsive. Speech difficulty at this time. Cranial nerves II through XII intact. Motor exam, no spontaneous movements in extremities noted. Sensory exam, grossly normal in lower extremities more than upper. Toes upgoing bilaterally. Coordination, gait deferred for now. IMPRESSION: An 82-year-old male with history of type II diabetes mellitus, status post cardiac arrest, with questionable seizure like activity, on Keppra 750 mg intravenous every 12 hours. EEG shows severe bilateral cerebral dysfunction. No evidence of epileptiform activity. Repeat CAT scan of the head showed no acute intracranial abnormality. At this time, in addition, he has severe sepsis with ventilator-dependent respiratory failure (VDRF) and acute renal failure with urinary tract infection and ESBL positive on antibiotics. RECOMMENDATIONS: At this time, 1. Continue with thiamine 300 mg IV every 12 daily for neuronal activity. 2. Continue with Keppra 750 mg IV every 12 for seizure prophylaxis. 3. MRI of the brain is pending to review any central process. 4. Cardiology is on followup following his troponins. 5. Continue antibiotics for ESBL positive in his urine. 6. Monitor electrolytes and correct accordingly. 7. Overall prognosis remains guarded. He has hypoxia, ischemic encephalopathy from status post cardiac arrest and continue with current ICU management. Jose Luis Espinal MD
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
[2018-02-07] MEDS: Morphine PCA 1 mg/ml (30ml) 30 ML IV PRN ×2 (15:18→23:40)
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
[2018-02-08] MEDS: Insulin Detemir 100 units/ml Vial (Levemir) SC SCH (00:24)
[2018-02-08] MEDS: Insulin Reg-MEDIUM-Coverage SC SCH ×3 (00:24→13:11)
[2018-02-08] MEDS: Morphine PCA 1 mg/ml (30ml) 30 ML IV PRN (07:40)
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
[2018-02-08 08:28] VITALS: RESP 17
[2018-02-08] MEDS ORDERED: MEROPENEM 500 MG in NS 500 MG/50 ML BAG IVPB SCH (10:00)
[2018-02-08] MEDS ORDERED: Morphine 4 mg/ml ISec IVP PRN (10:58)
--- NOTE | 2018-02-08 14:29 | CP.PCM.PRO ---
Pronouncement of Note - Clinical Findings Physical Exam: No Response Verbal/Painful Stimuli, Absent Peripheral Puls es{Carotid & Femoral}, Absent Heart & Breath Sounds, No Pupillary Light Reflex, No Corneal Reflex, Pupils Fixed & Dilated, Absence of Vital Signs - Pronouncement Time Time of Pronouncement of : 14:24 - Notifications Pronouncement Notifications: Family Notified, Atending Notified Recreation Leader Notified: No - Autopsy Autopsy Requested: No - [place] [id number]
[2018-02-08 14:45] VITALS: BP 90/46; PULSE 90; TEMP 98.7; O2SAT 83
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
== END 2018-02-08 14:24 | DRG 870 ==
LOC: EDBD → ED 10:53 → EDBD 10:53 → ERH 12:02 → CCU 14:03 → 5RSO 02-08 10:10
PROVIDERS: ADMIT Internal Medicine; ATTEND Internal Medicine
PROC: 5A1955Z Respiratory Ventilation, Greater than 96 Consecutive Hours (ICD-10-PCS; principal; 2018-02-03)
PROC: 0BH17EZ Insertion of Endotracheal Airway into Trachea, Via Natural or Artificial Opening (ICD-10-PCS; 2018-02-03)
DX: A41.9 Sepsis, unspecified organism (principal); J96.90 Respiratory failure, unspecified, unspecified whether with hypoxia or hypercapnia; J69.0 Pneumonitis due to inhalation of food and vomit; N17.9 Acute kidney failure, unspecified; N39.0 Urinary tract infection, site not specified; G93.1 Anoxic brain damage, not elsewhere classified; E87.2 Acidosis; E87.0 Hyperosmolality and hypernatremia; Z99.11 Dependence on respirator [ventilator] status; J98.11 Atelectasis; N40.0 Benign prostatic hyperplasia without lower urinary tract symptoms; N18.3 Chronic kidney disease, stage 3 (moderate); I12.9 Hypertensive chronic kidney disease with stage 1 through stage 4 chronic kidney disease, or unspecified chronic kidney disease; E11.22 Type 2 diabetes mellitus with diabetic chronic kidney disease; E11.65 Type 2 diabetes mellitus with hyperglycemia; D63.8 Anemia in other chronic diseases classified elsewhere; K43.9 Ventral hernia without obstruction or gangrene; E87.6 Hypokalemia; S80.12XA Contusion of left lower leg, initial encounter; S50.811A Abrasion of right forearm, initial encounter; S90.811A Abrasion, right foot, initial encounter; R65.20 Severe sepsis without septic shock; I25.10 Atherosclerotic heart disease of native coronary artery without angina pectoris; B96.1 Klebsiella pneumoniae [K. pneumoniae] as the cause of diseases classified elsewhere; D36.10 Benign neoplasm of peripheral nerves and autonomic nervous system, unspecified; Z66 Do not resuscitate; Z51.5 Encounter for palliative care; I25.2 Old myocardial infarction; V49.9XXA Car occupant (driver) (passenger) injured in unspecified traffic accident, initial encounter; Y92.410 Unspecified street and highway as the place of occurrence of the external cause